=== PATIENT | female | born 1995 | race Hispanic/Latino ===

== ENCOUNTER 2018-12-21 11:50 | Emergency (ER) | payer BC, OTHER ==
[2018-12-21] MEDS ORDERED: Lidocaine 1% (PF) 30 ML VIAL ONE (12:19)
== END 2018-12-21 12:46 | disposition home or self-care (01) ==
LOC: NAV ERS 11:50
DX: L02.415 Cutaneous abscess of right lower limb (principal)
CPT/HCPCS: 10061; 87070; 87205; J2001

== ENCOUNTER 2018-12-23 15:36 | Emergency (ER) | payer BC | END 2018-12-23 16:05 | disposition home or self-care (01) | LOC: NAV ERS 15:36 | DX: Z48.817 Encounter for surgical aftercare following surgery on the skin and subcutaneous tissue (principal) | CPT/HCPCS: 99282 ==

== ENCOUNTER 2018-12-25 18:31 | Emergency (ER) | payer BC | END 2018-12-25 19:12 | disposition home or self-care (01) | LOC: NAV ERS 18:31 | DX: Z48.817 Encounter for surgical aftercare following surgery on the skin and subcutaneous tissue (principal) | CPT/HCPCS: 99282 ==

== ENCOUNTER 2018-12-27 12:37 | Emergency (ER) | payer BC | END 2018-12-27 12:47 | disposition home or self-care (01) | LOC: NAV ERS 12:37 | DX: Z48.817 Encounter for surgical aftercare following surgery on the skin and subcutaneous tissue (principal) | CPT/HCPCS: 99282 ==